=== PATIENT | female | born 1970 | race Hispanic/Latino ===

== ENCOUNTER 2017-06-26 16:07 | Emergency (ER) | payer SELFPAY ==
[2017-06-26] MEDS ORDERED: SMZ./TMP. 800/160 MG TABLET ONE (16:31)
[2017-06-26] MEDS ORDERED: HYDROCODONE/APAP 7.5/325 MG TAB ONE (16:31)
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
== END 2017-06-26 17:43 | disposition home or self-care (01) ==
LOC: ER 16:07
PROC: 0J9R0ZZ Drainage of Left Foot Subcutaneous Tissue and Fascia, Open Approach (ICD-10-PCS; principal; 2017-06-26)
DX: T25.222A Burn of second degree of left foot, initial encounter (principal); T54.2X1A Toxic effect of corrosive acids and acid-like substances, accidental (unintentional), initial encounter; Y92.9 Unspecified place or not applicable; I10 Essential (primary) hypertension; Z88.0 Allergy status to penicillin
CPT/HCPCS: 87070; 87205; 99283